=== PATIENT | male | born 1960 | race Caucasian/White ===

== ENCOUNTER 2024-10-14 09:32 | Day surgery (SDC) | payer BC ==
[~2024-10-14 09:32] MED LIST: Lactated Ringers 1,000 ML IV SCH
[2024-10-14] MEDS: Lactated Ringers 1,000 ML IV SCH (09:47)
[2024-10-14] MEDS ORDERED: Propofol 200 MG/20 ML SDV ONE (10:11)
[2024-10-14] MEDS ORDERED: fentaNYL 100 MCG/2 ML SDV ONE (10:11)
[2024-10-14 12:12] VITALS: BP 140/73; PULSE 52
== END 2024-10-14 12:48 | disposition home or self-care (01) ==
LOC: VM.SDS 09:32
PROVIDERS: ATTEND Family Medicine
DX: Z12.11 Encounter for screening for malignant neoplasm of colon (principal); D12.6 Benign neoplasm of colon, unspecified; K57.30 Diverticulosis of large intestine without perforation or abscess without bleeding; K64.9 Unspecified hemorrhoids; K21.9 Gastro-esophageal reflux disease without esophagitis; Z86.0100 Personal history of colon polyps, unspecified; Z80.0 Family history of malignant neoplasm of digestive organs; I25.10 Atherosclerotic heart disease of native coronary artery without angina pectoris; E78.5 Hyperlipidemia, unspecified; Z79.899 Other long term (current) drug therapy
CPT/HCPCS: 00811; J2704; J3010; J7120